=== PATIENT | male | born 1960 | race Caucasian/White ===

== ENCOUNTER 2023-02-06 15:21 | Emergency (ER) | payer BC, OTHER ==
[~2023-02-06] VITALS: Ht 177 cm; Wt 91.0 kg
[2023-02-06] MEDS ORDERED: AMOX1TAB12 PO (15:46)
--- NOTE | 2023-02-06 15:46 | ED EENT ---
History of Present Illness General Chief Complaint: Dental Problems/Pain Stated Complaint: DENTAL/JAW PAIN/SWELLING Nursing Triage Note: PT AMB TO [facility] 6 PT CO OF JAW PAIN AND TOOTH PAIN IN FRONT LOWER TOOTH, STARTED ON TUESDAY WITH TOOTH PAIN AND HAS GOTTEN TO HURTING ALL OF LOWER JAW RATES PAIN 05/05 Source: patient Exam Limitations: no limitations History of Present Illness Date Seen by Provider: February 06, 2023 Time Seen by Provider: 15:33 Initial Comments 62-year-old male presents to the ED with complaints of dental pain starting Tuesday evening. States he was taking ibuprofen which helped. Reports the pain has now spread through his entire lower jaw and he has noticed swelling in his left lower jaw. He also feels as though his gums are swollen. He states that today the ibuprofen has not been helping. Denies any fevers, tongue swelling, shortness of air. Allergies and Home Medications Allergies Coded Allergies: ragweed pollen (Verified Allergy, Unknown, 02/06/23) Patient Home Medication List Home Medication List Reviewed: Yes Amoxicillin/Potassium Clav (Amox Tr-K Clv 875-125 mg Tab) 875 Mg-125 Mg Tablet, 1 EACH PO BID Prescribed by: Hiwot Beck on 02/06/23 1546 Review of Systems Review of Systems Constitutional: see HPI Past Cabkerd-Ubppkf-Dqgcal Hx Patient Social History Tobacco Use?: Yes Tobacco type used: Cigarettes Smoking Status: Current Everyday Smoker Smokeless Tobacco Frequency: Former User Substance use?: No Alcohol Use?: No Pt feels they are or have been: No Past Medical History Surgery/Hospitalization HX: DENIES MED HX Physical Exam Vital Signs Vital Signs - First Documented 02/06/23 15:30 Temp 35.5 Pulse 74 Resp 18 B/P (MAP) 152/90 (110) Pulse Ox 94 Height, Weight, BMI Height: '" Weight: lbs. oz. kg; 29.00 BMI Method: General Appearance: WD/WN, no apparent distress Mouth/Throat: other (Port dentition, multiple missing teeth, multiple cavities, abscess forming in anterior lower jaw) Neck: supple, normal inspection Cardiovascular: regular rate, rhythm Respiratory: lungs clear, normal breath sounds, no respiratory distress, no accessory muscle use Neurologic/Psychiatric: alert, normal mood/affect Skin: normal color, warm/dry Progress/Results/Core Measures Results/Orders Vital Signs/I&O Blood Pressure Mean: 110 Progress Progress Note : Progress Note Patient seen evaluated, resting comfortably in bed, no acute distress. Appears to be abscess forming in anterior lower jaw. Will discharge with oral antibiotics. Discharge instructions and return precautions provided. Departure Impression Primary Impression: Dental abscess Disposition: 01 HOME, SELF-CARE Condition: Stable Departure-Patient Inst. Decision time for Depature: 15:43 Referrals: NO,LOCAL PHYSICIAN (PCP/Family) Primary Care Physician Patient Instructions: Tooth Abscess (DC) Add. Discharge Instructions: Complete full course of antibiotic as directed. You may take 800 mg of ibuprofen every 8 hours with food as needed for pain. You may also take 1000 mg of Tylenol every 8 hours as needed for pain. Follow-up with the [facility] dental [facility]. Return for severe pain, fever, inability to swallow, shortness of air, or any other new, concerning, or worsening symptoms. All discharge instructions reviewed with patient and/or family. Voiced understanding. Scripts Amoxicillin/Potassium Clav (Amox Tr-K Clv 875-125 mg Tab) 875 Mg-125 Mg Tablet 1 EACH PO BID for 10 Days, #20 TAB 0 Refills Prov: HIWOT BECK APRN 02/06/23 HIWOT BECK APRN February 06, 2023 15:46
[2023-02-06 16:04] VITALS: BP 152/90
== END 2023-02-06 16:04 | disposition home or self-care (01) ==
LOC: ER 15:25
DX: K04.7 Periapical abscess without sinus (principal); K02.9 Dental caries, unspecified; F17.210 Nicotine dependence, cigarettes, uncomplicated
CPT/HCPCS: 99281